=== PATIENT | female | born 1985 ===

== ENCOUNTER → 2024-04-24 14:31 | Outpatient (CLI) | payer OTHER, BC, SELFPAY ==
--- NOTE | 2024-04-24 14:33 | DI.RAD.S_ITS ---
PROCEDURE: XR ANKLE RT MIN 3V INDICATIONS: LOWER EXTREMITY PAIN TECHNIQUE: 3 views of the ankle were acquired. COMPARISON: [facility], CR, XR TIBIA FIBULA RT 2V, 04/24/2024, 14:32. FINDINGS: Bones: No fractures or dislocations. Ankle mortise is normally aligned. No suspicious bony lesions. Soft tissues: Mild tibiotalar joint effusion. Achilles tendon appears normal. IMPRESSION: No visualized acute fracture or dislocation. However, if clinical concern and/or pain persist, short interval imaging followup in 7-10 days is recommended, as occult injury cannot be definitively excluded Dictated by: Mili Tobias M.D. on 04/24/2024 at 21:34 Approved by: Mili Tobias M.D. on 04/24/2024 at 21:34
--- NOTE | 2024-04-24 14:33 | DI.RAD.S_ITS ---
PROCEDURE: XR TIBIA FUBULA RT 2V INDICATIONS: Lower extremity pain TECHNIQUE: 2 views of the tibia and fibula were acquired. COMPARISON: [facility], CR, XR ANKLE RT MIN 3V, 04/24/2024, 14:32. [facility], CR, XR FOOT RT MIN 3V, 04/24/2024, 14:32. FINDINGS: Bones: No fractures or dislocations. No suspicious bony lesions. Soft tissues: No suspicious soft tissue calcifications or masses. IMPRESSION: No visualized acute fracture or dislocation. However, if clinical concern and/or pain persist, short interval imaging followup in 7-10 days is recommended, as occult injury cannot be definitively excluded. Dictated by: Mili Tobias M.D. on 04/24/2024 at 21:35 Approved by: Mili Tobias M.D. on 04/24/2024 at 21:35
--- NOTE | 2024-04-24 14:33 | DI.RAD.S_ITS ---
PROCEDURE: XR FOOT RT MIN 3V INDICATIONS: Lower extremity pain TECHNIQUE: 3 views of the foot were acquired. COMPARISON: [facility], CR, XR ANKLE RT MIN 3V, 04/24/2024, 14:32. [facility], CR, XR TIBIA FIBULA RT 2V, 04/24/2024, 14:32. FINDINGS: Bones: No fractures or dislocations. No suspicious bony lesions. Soft tissues: No tibiotalar joint effusion. Achilles tendon appears normal. IMPRESSION: No visualized acute fracture or dislocation. However, if clinical concern and/or pain persist, short interval imaging followup in 7-10 days is recommended, as occult injury cannot be definitively excluded. Dictated by: Mili Tobias M.D. on 04/24/2024 at 21:35 Approved by: Mili Tobias M.D. on 04/24/2024 at 21:35
== END ==
PROVIDERS: Referring Provider Nurse Practitioner Family; Visit Provider Nurse Practitioner Family
DX: M79.604 Pain in right leg (principal); M25.471 Effusion, right ankle
CPT/HCPCS: 73590; 73610; 73630